=== PATIENT | female | born 1995 | race Caucasian/White ===

== ENCOUNTER 2019-11-17 11:44 | Inpatient (IN) ==
[2019-11-17] MEDS ORDERED: ONDANSETRON 4 MG/2 ML VIAL IV PRN (12:04)
[2019-11-17] MEDS ORDERED: LACTATED RINGERS 500 ML IV PRN (12:04)
[2019-11-17] MEDS ORDERED: MEPERIDINE 50 MG/1 ML VIAL IV PRN (12:04)
[2019-11-17] MEDS ORDERED: BUTORPHANOL 2 MG/ML VIAL IV PRN (12:04)
[2019-11-17] MEDS ORDERED: ONDANSETRON 4 MG/2 ML VIAL IV ONE (12:12)
[2019-11-17] MEDS ORDERED: CITRIC ACID/SODIUM CITRATE 30 ML UDCUP PO ONE (12:12)
[2019-11-17] MEDS ORDERED: FAMOTIDINE 20 MG/2 ML VIAL IV ONE (12:12)
[2019-11-17] MEDS ORDERED: LACTATED RINGERS 1,000 ML IV ONE (12:12)
[2019-11-17] MEDS ORDERED: PROMETHAZINE 25 MG/1 ML VIAL IM ONE (12:12)
[2019-11-17] MEDS ORDERED: diphenhydrAMINE 50 MG/1 ML VIAL IV PRN ×2 (12:12)
[2019-11-17] MEDS ORDERED: hydrOXYzine HCL 25 MG/1 ML VIAL IM PRN (12:12)
[2019-11-17] MEDS ORDERED: NALOXONE 0.4 MG/ML VIAL IV PRN (12:12)
[2019-11-17] MEDS ORDERED: ePHEDrine 50 MG/ML AMP IV PRN (12:12)
[2019-11-17 12:24] LABS: Basophils % 0.2 % (0.0-0.8); Eosinophils % 0.4 % (0.00-10.9); Hematocrit 32.7 VOL% (35.7-47.0); Hemoglobin 9.9 GM/DL (12.0-16.0); Immature Granulocytes % 1.3 %; Immature Granulocytes Absolute 0.14 #; Lymphocytes % 18.2 % (21.3-54.2); Mean Corpuscular HGB Conc 30.3 GM/DL (32-36); Mean Corpuscular Volume 80.1 FL (87-102); Mean Platelet Volume 13.2 FL (9.6-12.0); Monocytes % 3.8 % (1.7-12.7); Neutrophils % 76.1 % (38.7-73.9); Platelet Count 213 T/CUMM (130-400); Red Blood Count 4.08 MC/CUMM (3.8-5.5); Red Cell Distribution Width 16.3 % (9.3-17.3)
[2019-11-17] MEDS ORDERED: OXYTOCIN/LR 20 UNIT/1,000 ML BAG IV SCH (12:30)
[2019-11-17] MEDS ORDERED: fentaNYL 2 MCG/ROPIV 0.2% EPID 100 ML EPIDURAL SCH (12:30)
[2019-11-17] MEDS ORDERED: LACTATED RINGERS 1,000 ML IV SCH (12:30)
[2019-11-17 12:56] LABS: Albumin 2.5 G/DL (3.4-5.0); Bilirubin,Total 0.8 MG/DL (0.2-1.0); Calcium 8.7 MG/DL (8.5-10.1); Osmolality,Calculated 270.7 MOS/KG (273-304); Total Protein 7.1 G/DL (6.4-8.3); Uric Acid 3.1 MG/DL (2.6-6.0)
[2019-11-17 14:06] LABS: Apearance,Urine CLEAR (Clear); Bacteria,Urine Occasional /HPF (Few); Bilirubin,Urine Negative (Negative); Blood, Urine Negative (Negative); Glucose,Urine (UA) Negative (Negative); Ketones,Urine Negative (Negative); Nitrite,Urine Negative (Negative); Protein,Urine Negative; RBC,Urine <1 /HPF (0-4); Squamous Epithelial Cell,Urine Occasional /HPF (0-10); Urine Color Straw (Yellow); Urine Specific Gravity 1.003 (1.001-1.035); Urine Urobilinogen < 2.0 EU/DL (0.2-1.0); WBC,Urine 1 /HPF (0-6)
[2019-11-17] MEDS ORDERED: ROPIVACAINE 0.5% 30 ML VIAL ONE (14:35)
[2019-11-17] MEDS ORDERED: fentaNYL 100 MCG/2 ML VIAL ONE (14:35)
[2019-11-17] MEDS ORDERED: hydrALAZINE 20 MG/1 ML VIAL IV SCH (15:00)
[2019-11-17] MEDS ORDERED: miSOPROStoL 200 MCG TABLET ONE (15:55)
[2019-11-17] MEDS ORDERED: TRANEXAMIC ACID 1,000 MG/10 ML VIAL ONE (15:55)
[2019-11-17] MEDS ORDERED: METHYLERGONOVINE 0.2 MG/1 ML AMP ONE (15:56)
[2019-11-17] MEDS ORDERED: CARBOPROST TROMETHAMINE 250 MCG/ML AMP IM ONE (15:56)
[2019-11-17 16:17] LABS: Cord Venous Blood HCO3 21.8 MMOL/L; Cord Venous Blood PCO2 37.2 MMHG; Cord Venous Blood PO2 15.2 MMHG
[2019-11-17 16:34] LABS: INR 0.9; PT Patient Result 9.4 SECS (9.6-12.2); Partial Thromboplastin Time 23.8 SECS (20.8-36.0)
[2019-11-17] MEDS ORDERED: HYDROCORTISONE 2.5% RECTAL CREAM 30 GM TUBE TOP PRN (17:56)
[2019-11-17] MEDS ORDERED: RHO(D) IMMUNE GLOBULIN 300 MCG SYRINGE IM ONE (17:56)
[2019-11-17] MEDS ORDERED: WITCH HAZEL PADS 100/JAR TOP PRN (17:56)
[2019-11-17] MEDS ORDERED: LANOLIN 50% CREAM 0.3 OZ TUBE TOP PRN (17:56)
[2019-11-17] MEDS ORDERED: DIPH/TET/ACEL PERT BOOSTER VACCINE 0.5 ML VIAL IM ONE (17:56)
[2019-11-17] MEDS ORDERED: OXYTOCIN/LR 20 UNIT/1,000 ML BAG IV ONE (17:56)
[2019-11-17] MEDS ORDERED: oxyCODONE/ACETAMINOPHEN 5-325 MG TABLET PO PRN ×2 (17:56)
[2019-11-17] MEDS ORDERED: ACETAMINOPHEN 325 MG TABLET PO PRN (17:56)
[2019-11-17] MEDS ORDERED: BISACODYL 10 MG SUPP RECTAL PRN (17:56)
[2019-11-17] MEDS ORDERED: BENZOCAINE 20%/MENTHOL 0.5% SPRAY 56 GM CAN TOP PRN (17:56)
[2019-11-17] MEDS ORDERED: MEASLES/MUMPS/RUBELLA VACCINE 0.5 ML VIAL SUBCUT ONE (17:56)
[2019-11-17] MEDS: IBUPROFEN 800 MG TABLET PO PRN (20:00)
[2019-11-17] MEDS: DOCUSATE SODIUM 100 MG CAPSULE PO SCH (20:00)
[2019-11-18 05:57] LABS: Basophils % 0.3 % (0.0-0.8); Eosinophils # 0.1 10*3/uL (0.0-0.87); Eosinophils % 0.9 % (0.00-10.9); Hematocrit 28.2 VOL% (35.7-47.0); Hemoglobin 8.5 GM/DL (12.0-16.0); Immature Granulocytes % 1.1 %; Immature Granulocytes Absolute 0.12 #; Lymphocytes # 2.6 10*3/uL (1.4-4.0); Lymphocytes % 23.1 % (21.3-54.2); Mean Corpuscular HGB Conc 30.1 GM/DL (32-36); Mean Corpuscular Volume 82.5 FL (87-102); Monocytes % 5.1 % (1.7-12.7); Neutrophils % 69.5 % (38.7-73.9); Platelet Count 170 T/CUMM (130-400); Red Blood Count 3.42 MC/CUMM (3.8-5.5); Red Cell Distribution Width 16.6 % (9.3-17.3); White Blood Count 11.2 T/CUMM (4-12)
[2019-11-18] MEDS: DOCUSATE SODIUM 100 MG CAPSULE PO SCH ×2 (10:30→22:07)
[2019-11-18] MEDS: IBUPROFEN 800 MG TABLET PO PRN ×2 (10:48→22:08)
[2019-11-19 07:17] VITALS: BP 134/72
[2019-11-19] MEDS: DOCUSATE SODIUM 100 MG CAPSULE PO SCH ×2 (07:57→09:50)
== END 2019-11-19 13:45 | disposition home or self-care (01) | DRG 560 ==
LOC: N.LDOUT 11:44 → N.LD 11:46 → N.OB 18:13
PROVIDERS: ADMIT Obstetrics & Gynecology; ATTEND Obstetrics & Gynecology

== ENCOUNTER 2021-03-08 13:30 | Inpatient (IN) ==
[2021-03-08] MEDS ORDERED: ONDANSETRON 4 MG/2 ML VIAL IV PRN (14:00)
[2021-03-08] MEDS ORDERED: CITRIC ACID/SODIUM CITRATE 30 ML UDCUP PO ONE (14:21)
[2021-03-08] MEDS ORDERED: LACTATED RINGERS 1,000 ML IV ONE (14:21)
[2021-03-08] MEDS ORDERED: FAMOTIDINE 20 MG/2 ML VIAL IV ONE (14:21)
[2021-03-08] MEDS ORDERED: ONDANSETRON 4 MG/2 ML VIAL IV ONE (14:22)
[2021-03-08] MEDS ORDERED: diphenhydrAMINE 50 MG/1 ML VIAL IV PRN ×2 (14:22)
[2021-03-08] MEDS ORDERED: ePHEDrine 50 MG/ML VIAL IV PRN (14:22)
[2021-03-08] MEDS ORDERED: NALOXONE 0.4 MG/ML VIAL IV PRN (14:22)
[2021-03-08] MEDS ORDERED: OXYTOCIN/LR 20 UNIT/1,000 ML BAG IV PRN (14:24)
[2021-03-08] MEDS ORDERED: OXYTOCIN/LR 20 UNIT/1,000 ML BAG IV ONE (14:37)
[2021-03-08 14:49] LABS: Basophils % 0.1 % (0.0-0.8); Eosinophils # 0.1 10*3/uL (0.0-0.87); Eosinophils % 0.9 % (0.00-10.9); Hematocrit 24.4 VOL% (35.7-47.0); Hemoglobin 6.8 GM/DL (12.0-16.0); Immature Granulocytes % 2.3 %; Immature Granulocytes Absolute 0.32 #; Lymphocytes # 2.4 10*3/uL (1.4-4.0); Lymphocytes % 17.2 % (21.3-54.2); Mean Corpuscular HGB Conc 27.9 GM/DL (32-36); Mean Corpuscular Volume 74.2 FL (87-102); Monocytes % 3.6 % (1.7-12.7); NRBC # 0.06 10*3/uL; Neutrophils % 75.9 % (38.7-73.9); Platelet Count 246 T/CUMM (130-400); Red Blood Count 3.29 MC/CUMM (3.8-5.5); Red Cell Distribution Width 19.4 % (9.3-17.3); White Blood Count 13.8 T/CUMM (4-12)
[2021-03-08] MEDS: LACTATED RINGERS 1,000 ML IV SCH (14:56)
[2021-03-08 15:07] LABS: Albumin 2.6 G/DL (3.4-5.0); Bilirubin,Total 1.1 MG/DL (0.2-1.0); Calcium 9.1 MG/DL (8.5-10.1); Osmolality,Calculated 272.7 MOS/KG (273-304); Potassium 3.4 MMOL/L (3.5-5.1); Total Protein 7.1 G/DL (6.4-8.2)
[2021-03-08] MEDS: fentaNYL 2 MCG/ROPIV 0.2% EPID 100 ML EPIDURAL SCH (15:35)
[2021-03-08] MEDS ORDERED: SODIUM CHLORIDE 0.9% 1,000 ML IV PRN ×3 (16:51→23:17)
[2021-03-08 22:50] LABS: Basophils % 0.3 % (0.0-0.8); Eosinophils # 0.1 10*3/uL (0.0-0.87); Hematocrit 23.2 VOL% (35.7-47.0); Hemoglobin 6.6 GM/DL (12.0-16.0); Immature Granulocytes % 2.6 %; Immature Granulocytes Absolute 0.26 #; Lymphocytes # 1.9 10*3/uL (1.4-4.0); Lymphocytes % 18.8 % (21.3-54.2); Mean Corpuscular HGB Conc 28.4 GM/DL (32-36); Mean Corpuscular Volume 76.1 FL (87-102); Mean Platelet Volume 11.7 FL (9.6-12.0); Monocytes % 6.4 % (1.7-12.7); NRBC # 0.07 10*3/uL; Neutrophils % 70.9 % (38.7-73.9); Platelet Count 232 T/CUMM (130-400); Red Blood Count 3.05 MC/CUMM (3.8-5.5); Red Cell Distribution Width 19.9 % (9.3-17.3); White Blood Count 9.9 T/CUMM (4-12)
[2021-03-09] MEDS: LACTATED RINGERS 1,000 ML IV SCH (04:05)
[2021-03-09] MEDS ORDERED: ONDANSETRON 4 MG/2 ML VIAL IV ONE (06:29)
[2021-03-09] MEDS ORDERED: MEPERIDINE 25 MG/1 ML VIAL IV ONE (06:29)
[2021-03-09] MEDS ORDERED: MEPERIDINE 50 MG/1 ML VIAL ONE (06:36)
[2021-03-09] MEDS ORDERED: MEPERIDINE 50 MG/1 ML VIAL IV ONE (06:37)
[2021-03-09] MEDS: fentaNYL 2 MCG/ROPIV 0.2% EPID 100 ML EPIDURAL SCH (06:54)
[2021-03-09] MEDS ORDERED: OXYTOCIN/LR 30 UNIT/1,000 ML BAG IV ONE (08:47)
[2021-03-09] MEDS ORDERED: miSOPROStoL 200 MCG TABLET ONE (08:51)
[2021-03-09] MEDS ORDERED: TRANEXAMIC ACID 1,000 MG/10 ML VIAL ONE (08:51)
[2021-03-09] MEDS ORDERED: OXYTOCIN/LR 0 UNIT/0 ML BAG IV ONE (08:52)
[2021-03-09] MEDS ORDERED: METHYLERGONOVINE 0.2 MG/1 ML AMP ONE (08:52)
[2021-03-09] MEDS ORDERED: CARBOPROST TROMETHAMINE 250 MCG/ML AMP IM ONE (08:53)
[2021-03-09] MEDS ORDERED: SODIUM CHLORIDE 0.9% 0 ML IV ONE (08:54)
[2021-03-09 09:47] LABS: Hematocrit 28.8 VOL% (35.7-47.0)
[2021-03-09 09:53] LABS: Hemoglobin 8.3 GM/DL (12.0-16.0)
[2021-03-09 10:32] LABS: Cord Arterial Blood HCO3 19.9 MMOL/L
[2021-03-09 10:35] LABS: Cord Venous Blood HCO3 20.7 MMOL/L; Cord Venous Blood PCO2 35.6 MMHG; Cord Venous Blood PO2 34.9
[2021-03-09] MEDS ORDERED: RHO(D) IMMUNE GLOBULIN 300 MCG SYRINGE IM ONE (12:07)
[2021-03-09] MEDS ORDERED: OXYTOCIN/LR 20 UNIT/1,000 ML BAG IV ONE (12:07)
[2021-03-09] MEDS ORDERED: LANOLIN 50% CREAM 0.3 OZ TUBE TOP PRN (12:07)
[2021-03-09] MEDS ORDERED: oxyCODONE/ACETAMINOPHEN 5-325 MG TABLET PO PRN (12:07)
[2021-03-09] MEDS ORDERED: WITCH HAZEL PADS 100/JAR TOP PRN (12:07)
[2021-03-09] MEDS ORDERED: MEASLES/MUMPS/RUBELLA VACCINE 0.5 ML VIAL SUBCUT ONE (12:07)
[2021-03-09] MEDS ORDERED: BENZOCAINE 20%/MENTHOL 0.5% SPRAY 56 GM CAN TOP PRN (12:07)
[2021-03-09] MEDS ORDERED: DIPH/TET/ACEL PERT BOOSTER VACCINE 0.5 ML VIAL IM ONE (12:07)
[2021-03-09] MEDS ORDERED: ACETAMINOPHEN 325 MG TABLET PO PRN (12:07)
[2021-03-09] MEDS ORDERED: HYDROCORTISONE 2.5% RECTAL CREAM 30 GM TUBE TOP PRN (12:07)
[2021-03-09] MEDS ORDERED: BISACODYL 10 MG SUPP RECTAL PRN (12:07)
[2021-03-09] MEDS: IBUPROFEN 800 MG TABLET PO PRN (12:29)
[2021-03-09] MEDS: oxyCODONE/ACETAMINOPHEN 5-325 MG TABLET PO PRN ×2 (14:09→15:03)
[2021-03-09] MEDS: POTASSIUM CHLORIDE 20 MEQ TABLET PO PRN ×3 (17:01→21:25)
[2021-03-09 18:59] LABS: Basophils # 0.1 10*3/uL (0.0-0.2); Basophils % 0.4 % (0.0-0.8); Eosinophils # 0.1 10*3/uL (0.0-0.87); Eosinophils % 0.9 % (0.00-10.9); Hematocrit 28.1 VOL% (35.7-47.0); Hemoglobin 8.9 GM/DL (12.0-16.0); Immature Granulocytes % 1.4 %; Immature Granulocytes Absolute 0.18 #; Lymphocytes % 15.4 % (21.3-54.2); Mean Corpuscular HGB Conc 31.7 GM/DL (32-36); Mean Corpuscular Volume 80.3 FL (87-102); Mean Platelet Volume 11.4 FL (9.6-12.0); Monocytes % 4.2 % (1.7-12.7); NRBC # 0.05 10*3/uL; Neutrophils % 77.7 % (38.7-73.9); Platelet Count 167 T/CUMM (130-400); Red Cell Distribution Width 21.2 % (9.3-17.3); White Blood Count 13.1 T/CUMM (4-12)
[2021-03-09] MEDS: DOCUSATE SODIUM 100 MG CAPSULE PO SCH (21:25)
[2021-03-10] MEDS: POTASSIUM CHLORIDE 20 MEQ TABLET PO PRN (02:14)
[2021-03-10 06:22] LABS: Basophils # 0.1 10*3/uL (0.0-0.2); Basophils % 0.4 % (0.0-0.8); Eosinophils # 0.4 10*3/uL (0.0-0.87); Eosinophils % 2.9 % (0.00-10.9); Hematocrit 30.2 VOL% (35.7-47.0); Hemoglobin 9.3 GM/DL (12.0-16.0); Immature Granulocytes % 1.8 %; Immature Granulocytes Absolute 0.25 #; Lymphocytes # 2.7 10*3/uL (1.4-4.0); Lymphocytes % 19.5 % (21.3-54.2); Mean Corpuscular HGB Conc 30.8 GM/DL (32-36); Mean Corpuscular Volume 81.2 FL (87-102); Mean Platelet Volume 12.3 FL (9.6-12.0); Monocytes % 4.7 % (1.7-12.7); NRBC # 0.03 10*3/uL; Neutrophils % 70.7 % (38.7-73.9); Platelet Count 169 T/CUMM (130-400); Red Blood Count 3.72 MC/CUMM (3.8-5.5); Red Cell Distribution Width 21.3 % (9.3-17.3); White Blood Count 13.9 T/CUMM (4-12)
[2021-03-10] MEDS: IBUPROFEN 800 MG TABLET PO PRN ×2 (06:33→14:29)
[2021-03-10] MEDS: FERROUS SULFATE 325 MG TABLET PO SCH ×2 (08:30→21:02)
[2021-03-10] MEDS: DOCUSATE SODIUM 100 MG CAPSULE PO SCH ×2 (08:30→21:02)
[2021-03-11] MEDS: DOCUSATE SODIUM 100 MG CAPSULE PO SCH (07:41)
[2021-03-11] MEDS: FERROUS SULFATE 325 MG TABLET PO SCH (07:41)
[2021-03-11 07:44] VITALS: BP 131/80
== END 2021-03-11 10:05 | disposition home or self-care (01) | DRG 560 ==
LOC: N.LD 13:30 → N.OB 03-09 15:39
PROVIDERS: ADMIT Obstetrics & Gynecology; ATTEND Obstetrics & Gynecology